=== PATIENT | male | born 1990 | race Caucasian/White ===

== ENCOUNTER 2021-03-12 14:00 | Emergency (ER) | payer MEDICAID ==
[~2021-03-12] VITALS: Ht 172.7 cm; Wt 81.6 kg
[2021-03-12 14:00] VITALS: BP_SYST 126
--- NOTE | 2021-03-12 14:00 | NUR ---
RECEIVED AND IN ROOM, CALM, ALERT, PLACED ON MONITOR, NO DISTRESS
--- NOTE | 2021-03-12 14:20 | NUR ---
DR RUIZ IN TO ASSESS
[2021-03-12] MEDS ORDERED: LevALBUTEROL HCL 1.25 MG/0.5 ML *CONC.* VIAL.NEB (XOPENEX CONC.) INH ONE (14:30)
--- NOTE | 2021-03-12 14:30 | NUR ---
CALM, ALERT, RESP UNLABORED, SKIN WARM AND DRY. SR ON MONITOR, DENIES CP/SOB
[2021-03-12 15:34] LABS: BASOPHILS % (AUTO) 0.3 % (0.0-2.0); EOSINOPHILS # (AUTO) 0.1 K/uL (0.0-0.4); EOSINOPHILS % (AUTO) 1.8 % (0.0-4.0); HEMATOCRIT 44.9 % (36-54); HEMOGLOBIN 15.2 g/dL (14.0-18.0); LYMPHOCYTES # (AUTO) 2.5 K/uL (1.0-5.5); LYMPHOCYTES % (AUTO) 48.8 % (20.5-51.5); MEAN CORPUSCULAR HEMOGLOBIN 30 pg (27-31); MEAN CORPUSCULAR HGB CONC 34 % (32-36); MEAN CORPUSCULAR VOLUME 88 fL (79.0-98.0); MONOCYTES # (AUTO) 0.5 K/uL (0.0-1.0); MONOCYTES % (AUTO) 10.2 % (1.7-9.3); NEUTROPHILS % (AUTO) 38.9 % (40.0-70.0); PLATELET COUNT (AUTO) 176 K/uL (130-430); RED BLOOD CELL COUNT(AUTO) 5.11 MIL/uL (4.2-6.2); RED CELL DISTRIBUTION WIDTH 13.1 % (9.0-15.0)
[2021-03-12 15:50] LABS: CREATININE 0.99 mg/dL (0.55-1.30); POTASSIUM 4.1 mmol/L (3.5-5.1)
[2021-03-12 15:57] LABS: ALBUMIN 4.3 g/dL (3.4-4.8); TOTAL BILIRUBIN 0.6 mg/dL (0.0-1.0)
--- NOTE | 2021-03-12 16:35 | NUR ---
Patient given written and verbal discharge instructions and verbalizes understanding. ER MD discussed with patient the results and treatment provided. Patient in stable condition. ID arm band removed. Patient educated on pain management and to follow up with PMD. Pain Scale 0/10 Opportunity for questions provided and answered.
[2021-03-12 16:43] VITALS: BP_SYST 111
== END 2021-03-12 16:35 | disposition home or self-care (01) ==
LOC: SED 14:00
DX: R06.02 Shortness of breath (principal); R07.89 Other chest pain; J45.909 Unspecified asthma, uncomplicated
CPT/HCPCS: 36415; 71045; 80053; 83880; 84484; 85025; 93005; 94640; 99285; J7612